=== PATIENT | female | born 1985 | race Caucasian/White ===

== ENCOUNTER → 2018-02-26 | Outpatient (CLI) | payer OTHER ==
[~2018-02-26] MED LIST: APAP/CODEINE ELI5 M1 PO; AUGMENTIN 875875 M1 PO; BIRTH CONTROLL IMPLA; CARAFATE 1 GM TA1 GM PO; CATAPRES PO; COZAAR 25 MG TA25 M1; COZAAR 50 MG TA50 M2 PO; CYCLOBENZAPRINE10 MG PO; IBUPROFEN 600600 M1 PO; LISINOPRIL5 MG PO; LOESTRIN1 EAC1; NAPROXEN500 MG PO; NORCO 5-325 TA1 EACH PO; ONDANSETRON ODT4 MG PO; PROTONIX40 M1 PO; VALIUM2 MG PO; VENTOLIN HFA 1818 GM INH; ZPAK PO
== END ==
LOC: M.INFUS 07:58
DX: L03.116 Cellulitis of left lower limb (principal); I10 Essential (primary) hypertension; E66.9 Obesity, unspecified

== ENCOUNTER → 2018-02-27 | Outpatient (CLI) | payer OTHER, SELFPAY ==
--- NOTE | 2018-02-27 08:00 | NUR ---
ARRIVED PER WHEELCHAIR. PT ASSISTED INTO RECLINER. MADE SELF COMFORTABLE IN RECLINER. LEFT LOWER EXTREMITY ELEVATED ON PILLOW FOR COMFORT. OUTPATIENT ADMISSION/HX OBTAINED. PICC LINE INTACT AND PATENT. LABS (CBC W/DIFF, CMP, AND CRP) DRAWN. PT'S PICC LINE WAS PLACED ON 02/22/18 AND DRESSING IS DUE TO BE CHANGED ON 03/01/18. INVANZ 1 GRAM INFUSION COMPLETED AND TOLERATED WELL. PT GIVEN DISCHARGE INSTRUCTIONS AND VERBALIZED UNDERSTANDING. PT TAKEN BY W/CHAIR FOR D/CHARGE HOME VIA FAMILY CAR. PT ACCOMPANIED BY PT'S FATHER.
[2018-02-27 08:04] VITALS: BP 138/79
[2018-02-27 09:42] LABS: ABSOLUTE BASOPHILS 0.1 thou/uL (0.0-0.2); ABSOLUTE EOSINOPHILS 0.2 thou/uL (0.0-0.7); ABSOLUTE LYMPHOCYTES 2.4 thou/uL (0.8-5.3); ABSOLUTE MONOCYTES 0.7 thou/uL (0.0-1.2); ABSOLUTE NEUTROPHILS 6.9 thou/uL (1.6-8.1); BASOPHILS 1.3 %; EOSINOPHILS 1.7 %; HEMATOCRIT 35.1 % (37.0-47.0); HEMOGLOBIN 11.7 gm/dL (12.0-15.0); LYMPHOCYTES 23.2 %; MCHC 33.3 g/dL (28.0-37.0); MCV 84.3 fL (80.0-100.0); MPV 7.3 fl. (7.2-11.1); NUCLEATED RBCS 0 /100WBC; PLATELET COUNT* 408 thou/uL (150-400); POLYS 66.8 %; RBC 4.16 mil/uL (4.20-5.00); RDW-CV 13.6 % (10.5-14.5); WBC 10.3 thou/uL (4.0-11.0)
[2018-02-27 10:01] LABS: ALBUMIN 2.9 g/dL (3.4-5.0); CALCIUM 8.9 mg/dL (8.5-10.1); TOTAL BILIRUBIN 0.3 mg/dL (<0.1-1.0); TOTAL PROTEIN 7.1 g/dL (6.4-8.2)
== END ==
LOC: M.INFUS 07:39
PROVIDERS: Internal Medicine Infectious Disease
DX: L03.116 Cellulitis of left lower limb (principal); I10 Essential (primary) hypertension; E66.9 Obesity, unspecified

== ENCOUNTER → 2018-02-28 | Outpatient (CLI) | payer OTHER, SELFPAY ==
--- NOTE | 2018-02-28 09:22 | NUR ---
ARRIVED AMBULATORY W/AID OF KNEE WALKER. MADE SELF COMFORTABLE IN RECLINER. DUAL LUMEN PICC LINE INTACT W/DRESSING C/D/I AND PATENT W/EASY FLUSH AND GOOD BLOOD RETURN. INFUSION COMPLETED AND TOLERATED WELL. DUAL LUMEN PICC FLUSHED W/20 CC NS. PT DENIES NEEDS/QUESTIONS AT DISCHARGE.
[2018-02-28 09:25] VITALS: BP 130/87
== END ==
LOC: M.INFUS 01:40
DX: L03.116 Cellulitis of left lower limb (principal); I10 Essential (primary) hypertension; E66.9 Obesity, unspecified

== ENCOUNTER → 2018-03-01 | Outpatient (CLI) | payer OTHER ==
[2018-03-01 14:40] VITALS: BP 124/71
--- NOTE | 2018-03-01 16:05 | NUR ---
ARRIVED PER [facility] SCOOTER. MADE SELF COMFORTABLE IN RECLINER. WEEKLY PICC DRESSING CHANGED. TOLERATED WELL. INFUSION COMPLETED AND TOELRATED WELL. PT VOICED CONCERN THAT MED WAS TO RUN OVER 30 MIN. STATED IT HAD CAUSED IV TO GO BAD IN HOSPITAL. PT EDUCATION ON PICC AND CENTRAL LINE VS PIV. STATED STILL DID NOT WANT IT TO RUN IN LESS THAN 1 HOUR. INFUSION COMPLETED AND TOLERATED WELL.
== END ==
LOC: M.INFUS 02:09
DX: L03.116 Cellulitis of left lower limb (principal); I10 Essential (primary) hypertension; E66.9 Obesity, unspecified; Z68.42 Body mass index [BMI] 45.0-49.9, adult

== ENCOUNTER → 2018-03-02 | Outpatient (CLI) | payer OTHER ==
[2018-03-02 13:48] VITALS: BP 144/80
== END ==
LOC: M.INFUS 01:49
DX: L03.116 Cellulitis of left lower limb (principal); I10 Essential (primary) hypertension; E66.9 Obesity, unspecified; Z68.42 Body mass index [BMI] 45.0-49.9, adult

== ENCOUNTER → 2018-03-03 | Outpatient (CLI) | payer OTHER, SELFPAY ==
[2018-03-03 14:20] VITALS: BP 127/72
== END ==
LOC: M.INFUS 01:36
DX: L03.116 Cellulitis of left lower limb (principal); I10 Essential (primary) hypertension; E66.9 Obesity, unspecified; Z68.42 Body mass index [BMI] 45.0-49.9, adult

== ENCOUNTER → 2018-03-04 | Outpatient (CLI) | payer OTHER | LOC: M.INFUS 08:00 | DX: L03.116 Cellulitis of left lower limb (principal) ==

== ENCOUNTER → 2018-03-05 | Outpatient (CLI) | payer OTHER, SELFPAY | LOC: M.INFUS 08:00 | DX: M00.9 Pyogenic arthritis, unspecified (principal) ==

== ENCOUNTER → 2018-03-06 | Outpatient (CLI) | payer OTHER, SELFPAY ==
[2018-03-06 12:20] VITALS: BP 144/88
[2018-03-06 14:36] LABS: ABSOLUTE BASOPHILS 0.1 thou/uL (0.0-0.2); ABSOLUTE EOSINOPHILS 0.1 thou/uL (0.0-0.7); ABSOLUTE LYMPHOCYTES 3.1 thou/uL (0.8-5.3); ABSOLUTE MONOCYTES 0.6 thou/uL (0.0-1.2); ABSOLUTE NEUTROPHILS 4.8 thou/uL (1.6-8.1); BASOPHILS 0.6 %; EOSINOPHILS 1.6 %; HEMOGLOBIN 11.7 gm/dL (12.0-15.0); LYMPHOCYTES 35.6 %; MCH 27.9 pg (26.0-34.0); MCHC 33.4 g/dL (28.0-37.0); MCV 83.7 fL (80.0-100.0); MONOCYTES 6.6 %; MPV 7.5 fl. (7.2-11.1); NUCLEATED RBCS 0 /100WBC; PLATELET COUNT* 364 thou/uL (150-400); POLYS 55.6 %; RBC 4.18 mil/uL (4.20-5.00); RDW-CV 13.5 % (10.5-14.5); WBC 8.6 thou/uL (4.0-11.0)
--- NOTE | 2018-03-06 14:38 | NUR ---
ARRIVED AMBUALTORY WITH KNEE SCOOTER. MADE SELF COMFORTABLE. SON AT CHAIRSIDE. PICC LINE INTACT WITH DRESSING C/D/I. WEEKLY LABS DRAWN PER STANDING ORDER. INFUSION COMPLETED AND TOLERATED WELL. PICC FLUSHED. DENIES NEEDS AT DISCHARGE.
[2018-03-06 15:14] LABS: CALCIUM 9.1 mg/dL (8.5-10.1); POTASSIUM 4.2 mmol/L (3.5-5.1); TOTAL BILIRUBIN 0.2 mg/dL (<0.1-1.0); TOTAL PROTEIN 6.9 g/dL (6.4-8.2)
[2018-03-06 15:15] LABS: ALBUMIN 3.2 g/dL (3.4-5.0)
== END ==
LOC: M.INFUS 00:07
PROVIDERS: Internal Medicine Infectious Disease
DX: M00.9 Pyogenic arthritis, unspecified (principal)

== ENCOUNTER → 2018-03-07 | Outpatient (CLI) | payer OTHER | LOC: M.WC 12:28 | DX: T81.89XA Other complications of procedures, not elsewhere classified, initial encounter (principal); I10 Essential (primary) hypertension; E66.9 Obesity, unspecified; Z68.42 Body mass index [BMI] 45.0-49.9, adult; Y83.8 Other surgical procedures as the cause of abnormal reaction of the patient, or of later complication, without mention of misadventure at the time of the procedure ==

== ENCOUNTER → 2018-03-07 | Outpatient (CLI) | payer OTHER, SELFPAY | LOC: M.INFUS 03:26 | DX: M00.9 Pyogenic arthritis, unspecified (principal) ==

== ENCOUNTER → 2018-03-08 | Outpatient (CLI) | payer OTHER, SELFPAY ==
[2018-03-08 14:15] VITALS: BP 132/78
== END ==
LOC: M.INFUS 05:54
DX: M00.9 Pyogenic arthritis, unspecified (principal)

== ENCOUNTER → 2018-03-09 | Outpatient (CLI) | payer OTHER, SELFPAY ==
[2018-03-09 14:10] VITALS: BP 138/78
== END ==
LOC: M.INFUS 02:24
DX: L03.116 Cellulitis of left lower limb (principal); I10 Essential (primary) hypertension; E66.9 Obesity, unspecified; Z68.42 Body mass index [BMI] 45.0-49.9, adult

== ENCOUNTER → 2018-03-10 | Outpatient (CLI) | payer OTHER ==
[2018-03-04 15:00] VITALS: BP 135/82
--- NOTE | 2018-03-04 16:01 | NUR ---
RECEIVED PT FROM ER FOR OUTPATIENT INFUSION OF INVANZ OVER 1 HOUR. PT ARRIVED AT 1445 AND INFUSION BEGAN AT 1500 AND ENDED AT 1600. POST VITALS ARE BP OF 130/80, HR OF 80, TEMP OF 98.3.
== END ==
LOC: M.INFUS 01:34
DX: L03.116 Cellulitis of left lower limb (principal); I10 Essential (primary) hypertension; E66.9 Obesity, unspecified; Z68.42 Body mass index [BMI] 45.0-49.9, adult; Z86.718 Personal history of other venous thrombosis and embolism

== ENCOUNTER → 2018-03-11 | Outpatient (CLI) | payer OTHER, SELFPAY ==
[2018-03-11 17:30] VITALS: BP 133/81
--- NOTE | 2018-03-11 18:21 | NUR ---
PT ARRIVED ON THE FLOOR AT 1730. VSS WNL. WAITING ON PHARMACY FOR MEDICATION.
== END ==
LOC: M.INFUS 08:00
DX: M79.662 Pain in left lower leg (principal); L03.116 Cellulitis of left lower limb; I10 Essential (primary) hypertension; E66.9 Obesity, unspecified; Z68.42 Body mass index [BMI] 45.0-49.9, adult

== ENCOUNTER → 2018-03-12 | Outpatient (CLI) | payer OTHER, SELFPAY | LOC: M.INFUS 08:00 | DX: L03.116 Cellulitis of left lower limb (principal); I10 Essential (primary) hypertension; E66.9 Obesity, unspecified; Z68.42 Body mass index [BMI] 45.0-49.9, adult ==

== ENCOUNTER → 2018-03-13 | Outpatient (CLI) | payer OTHER, SELFPAY ==
--- NOTE | 2018-03-13 14:12 | NUR ---
PATIENT ARRIVAL VIA [facility] AMBULATORY SCOOTER FROM HOME TO OP INFUSION AREA WITH FAMILY PRESENT. HISTORY AND ORDERS REVIEWED. REASSESSMENT AND VS OBTAINED. RT UPPER ARM DUAL LUMEN PICC WITH DRESSING C/D/I AND WITHOUT REDNESS OR DRAINAGE. PICC LUMENS WITH BRISK BLOOD RETURN AND FLUSH WELL. WEEKLY LABS DRAWN. INVANZ THERAPY STARTED ONCE AVAILABLE FROM PHARMACY.
[2018-03-13 14:15] VITALS: BP 130/77
[2018-03-13 15:00] LABS: ABSOLUTE BASOPHILS 0.1 thou/uL (0.0-0.2); ABSOLUTE EOSINOPHILS 0.2 thou/uL (0.0-0.7); ABSOLUTE LYMPHOCYTES 2.4 thou/uL (0.8-5.3); ABSOLUTE MONOCYTES 0.5 thou/uL (0.0-1.2); ABSOLUTE NEUTROPHILS 4.5 thou/uL (1.6-8.1); EOSINOPHILS 2.5 %; HEMOGLOBIN 11.6 gm/dL (12.0-15.0); LYMPHOCYTES 31.1 %; MCH 27.9 pg (26.0-34.0); MCHC 33.3 g/dL (28.0-37.0); MCV 83.9 fL (80.0-100.0); MONOCYTES 6.5 %; NUCLEATED RBCS 0 /100WBC; PLATELET COUNT* 295 thou/uL (150-400); POLYS 58.9 %; RBC 4.17 mil/uL (4.20-5.00); RDW-CV 13.6 % (10.5-14.5); WBC 7.7 thou/uL (4.0-11.0)
[2018-03-13 15:08] LABS: ALBUMIN 3.1 g/dL (3.4-5.0); CALCIUM 9.5 mg/dL (8.5-10.1); CREATININE 0.9 mg/dL (0.6-1.3); POTASSIUM 3.5 mmol/L (3.5-5.1); TOTAL BILIRUBIN 0.3 mg/dL (<0.1-1.0); TOTAL PROTEIN 7.3 g/dL (6.4-8.2)
--- NOTE | 2018-03-13 15:50 | NUR ---
ANTIBIOTIC THERAPY COMPLETED. PICC LINE FLUSHED WITH NS. PATIENT DENIES CONCERNS. DEPARTS FOR HOME VIA ROLLING SCOOTER WITH FAMILY PRESENT AT 1552.
== END ==
LOC: M.INFUS 05:44
PROVIDERS: Internal Medicine Infectious Disease
DX: L03.116 Cellulitis of left lower limb (principal); I10 Essential (primary) hypertension; E66.9 Obesity, unspecified; Z68.42 Body mass index [BMI] 45.0-49.9, adult

== ENCOUNTER → 2018-03-14 | Outpatient (CLI) | payer OTHER, SELFPAY ==
[2018-03-14 14:40] VITALS: BP 132/78
== END ==
LOC: M.INFUS 04:02 → M.WC 04:02 → M.INFUS 14:30
DX: T81.89XD Other complications of procedures, not elsewhere classified, subsequent encounter (principal); I10 Essential (primary) hypertension; E66.9 Obesity, unspecified; Z68.42 Body mass index [BMI] 45.0-49.9, adult; Y83.8 Other surgical procedures as the cause of abnormal reaction of the patient, or of later complication, without mention of misadventure at the time of the procedure

== ENCOUNTER → 2018-03-15 | Outpatient (CLI) | payer OTHER, SELFPAY ==
[2018-03-15 14:00] VITALS: BP 136/76
--- NOTE | 2018-03-15 15:09 | NUR ---
INFUSION COMPLETED AND TOLERATED WELL. DENIES QUESTIONS OR NEEEDS AT DISHCARGE.
== END ==
LOC: M.INFUS 01:33
DX: L03.116 Cellulitis of left lower limb (principal); I10 Essential (primary) hypertension; E66.9 Obesity, unspecified

== ENCOUNTER → 2018-03-16 | Outpatient (CLI) | payer OTHER, SELFPAY ==
[2018-03-16 14:26] VITALS: BP 134/79
== END ==
LOC: M.INFUS 01:27
DX: L03.116 Cellulitis of left lower limb (principal); I10 Essential (primary) hypertension; E66.9 Obesity, unspecified

== ENCOUNTER → 2018-03-17 | Outpatient (CLI) | payer OTHER, SELFPAY ==
--- NOTE | 2018-03-17 14:09 | NUR ---
ARRIVED AMBULATORY W/ASSISTANCE OF KNEE SCOOTER. MADE SELF COMFORTABLE IN RECLINER. LEFT FOOT ELEVATED ON PILLOW FOR COMFORT. DUAL LUMEN PICC LINE TO RIGHT UPPER ARM INTACT W/DRESSING C/D/I AND PATENT W/EASY FLUSH AND GOOD BLOOD RETURN. PT DENIES ADVERSE REACTION TO PRIOR INFUSIONS OF SAME. INFUSION COMPLETED AND TOLERATED WELL. DUAL LUMEN PICC FLUSHED W/20CC NS AFTER INFUSION COMPLETED. PT DENIES QUESTIONS/NEEDS AT DISCHARGE.
[2018-03-17 14:10] VITALS: BP 131/80
== END ==
LOC: M.INFUS 01:17
DX: L03.116 Cellulitis of left lower limb (principal); I10 Essential (primary) hypertension; E66.9 Obesity, unspecified

== ENCOUNTER → 2018-03-18 | Outpatient (CLI) | payer OTHER, SELFPAY | LOC: M.INFUS 08:00 | DX: L03.116 Cellulitis of left lower limb (principal); I10 Essential (primary) hypertension; E66.9 Obesity, unspecified ==

== ENCOUNTER → 2018-03-19 | Outpatient (CLI) | payer OTHER ==
[2018-03-19 14:45] VITALS: BP 124/80
[2018-03-19 16:07] VITALS: BP 131/81
== END ==
LOC: M.INFUS 08:00
DX: L03.116 Cellulitis of left lower limb (principal); I10 Essential (primary) hypertension; E66.9 Obesity, unspecified

== ENCOUNTER → 2018-03-20 | Outpatient (CLI) | payer OTHER ==
--- NOTE | 2018-03-20 14:13 | NUR ---
PATIENT ARRIVAL AMBULATORY FROM HOME TO OP INFUSION AREA. FATHER PRESENT WITH PATIENT. PATIENT USING KNEE SCOOTER TO AMBULATE INDEPENDENTLY. MADE SELF COMFORTABLE IN RECLINER. CALL LIGHT AND REMOTE AVAILABLE. HISTORY AND ORDERS REVIEWED. REASSESSMENT AND VS OBTAINED. RT UPPER ARM DUAL LUMEN PICC WITH DRESSING C/D/I. BRISK BLOOD RETURN OBTAINED BOTH LUMENS AND FLUSHES WELL. WEEKLY LABS DRAWN. ANTIBIOTIC THERAPY STARTED ONCE AVAILABLE FROM PHARMACY.
[2018-03-20 14:16] VITALS: BP 132/79
[2018-03-20 14:51] LABS: ABSOLUTE BASOPHILS 0.1 thou/uL (0.0-0.2); ABSOLUTE EOSINOPHILS 0.2 thou/uL (0.0-0.7); ABSOLUTE LYMPHOCYTES 2.6 thou/uL (0.8-5.3); ABSOLUTE MONOCYTES 0.5 thou/uL (0.0-1.2); ABSOLUTE NEUTROPHILS 4.6 thou/uL (1.6-8.1); BASOPHILS 0.8 %; HEMATOCRIT 36.1 % (37.0-47.0); HEMOGLOBIN 11.8 gm/dL (12.0-15.0); LYMPHOCYTES 32.7 %; MCH 27.6 pg (26.0-34.0); MCHC 32.8 g/dL (28.0-37.0); MCV 84.1 fL (80.0-100.0); MONOCYTES 6.7 %; MPV 7.9 fl. (7.2-11.1); NUCLEATED RBCS 0 /100WBC; PLATELET COUNT* 322 thou/uL (150-400); POLYS 57.8 %; RBC 4.29 mil/uL (4.20-5.00); RDW-CV 13.8 % (10.5-14.5); WBC 7.9 thou/uL (4.0-11.0)
[2018-03-20 15:10] LABS: ALBUMIN 3.2 g/dL (3.4-5.0); CALCIUM 9.4 mg/dL (8.5-10.1); CREATININE 0.9 mg/dL (0.6-1.3); POTASSIUM 3.8 mmol/L (3.5-5.1); TOTAL BILIRUBIN 0.2 mg/dL (<0.1-1.0); TOTAL PROTEIN 6.8 g/dL (6.4-8.2)
--- NOTE | 2018-03-20 15:29 | NUR ---
LAB RESULTS FAXED TO DR. FU'S OFFICE.
--- NOTE | 2018-03-20 15:35 | NUR ---
ANTIBIOTIC THERAPY COMPLETED. PICC LINE FLUSHED. PATIENT DEPARTS FOR HOME WITH FATHER PRESENT BY KNEE SCOOTER. DENIES CONCERNS. PICC LINE DRESSING REMAINS C/D/I.
== END ==
LOC: M.INFUS 01:31
PROVIDERS: Internal Medicine Infectious Disease
DX: L03.116 Cellulitis of left lower limb (principal); I10 Essential (primary) hypertension; E66.9 Obesity, unspecified

== ENCOUNTER → 2018-03-21 | Outpatient (CLI) | payer OTHER | LOC: M.INFUS 02:13 → M.WC 02:13 → M.INFUS 14:30 | DX: L03.116 Cellulitis of left lower limb (principal) ==

== ENCOUNTER → 2018-03-22 | Outpatient (CLI) | payer OTHER ==
--- NOTE | 2018-03-22 15:59 | NUR ---
INFUSION COMPLETED AND TOLERATED WELL.
== END ==
LOC: M.INFUS 03:32
DX: L03.116 Cellulitis of left lower limb (principal)

== ENCOUNTER → 2018-03-24 | Outpatient (CLI) | payer OTHER ==
[2018-03-24 14:12] VITALS: BP 131/75
--- NOTE | 2018-03-24 15:25 | NUR ---
PT TOLERATED HER ANTIBIOTIC INFUSION WELL, WITHOUT ANY COMPLICATIONS.
== END ==
LOC: M.WC 01:53 → M.INFUS 01:53 → M.WC 14:00 → M.INFUS 14:30
DX: L03.116 Cellulitis of left lower limb (principal)

== ENCOUNTER → 2018-03-25 | Outpatient (CLI) | payer OTHER ==
[2018-03-23 14:10] VITALS: BP 149/85
--- NOTE | 2018-03-23 14:20 | NUR ---
ASSUMED CARE OF PATIENT FORM HOME. SHE HAS NO CO OF PAIN OR NAUSEA. SHE WAS ASSESSED AND CONDITION IS SAME. SHE WAS EDUCATED ON PLAN OF CARE AND DISEASE PROCESS, WILL CONTINUE TO MONITOR.
== END ==
LOC: M.INFUS 03-23 04:56
DX: L03.116 Cellulitis of left lower limb (principal)

== ENCOUNTER → 2018-03-27 | Outpatient (CLI) | payer OTHER ==
[2018-03-27 14:05] VITALS: BP 141/72
[2018-03-27 14:28] LABS: ABSOLUTE BASOPHILS 0.1 thou/uL (0.0-0.2); ABSOLUTE EOSINOPHILS 0.2 thou/uL (0.0-0.7); ABSOLUTE LYMPHOCYTES 3.1 thou/uL (0.8-5.3); ABSOLUTE MONOCYTES 0.5 thou/uL (0.0-1.2); ABSOLUTE NEUTROPHILS 4.7 thou/uL (1.6-8.1); BASOPHILS 1.2 %; EOSINOPHILS 1.8 %; HEMATOCRIT 35.4 % (37.0-47.0); HEMOGLOBIN 11.8 gm/dL (12.0-15.0); LYMPHOCYTES 36.1 %; MCHC 33.3 g/dL (28.0-37.0); MCV 84.2 fL (80.0-100.0); MPV 7.5 fl. (7.2-11.1); NUCLEATED RBCS 0 /100WBC; PLATELET COUNT* 335 thou/uL (150-400); POLYS 54.9 %; RBC 4.21 mil/uL (4.20-5.00); RDW-CV 14.1 % (10.5-14.5); WBC 8.6 thou/uL (4.0-11.0)
[2018-03-27 14:42] LABS: ALBUMIN 3.2 g/dL (3.4-5.0); CALCIUM 8.7 mg/dL (8.5-10.1); CREATININE 0.7 mg/dL (0.6-1.3); POTASSIUM 3.8 mmol/L (3.5-5.1); TOTAL BILIRUBIN 0.2 mg/dL (<0.1-1.0); TOTAL PROTEIN 6.7 g/dL (6.4-8.2)
--- NOTE | 2018-03-27 16:08 | NUR ---
DUAL LUMAN PICC INTACT AND PATENT. GOOD BLOOD RETURN AND EASY FLUSH. WEEKLY LABS DRAWN AND RESULTS FAXTED TO ORDERING DOCTOR. INFUSION COMPLETED AND TOELRATED WELL. PICC FLUSHED AFTER. DENEIS NEEDS AT DISCHARGE.
== END ==
LOC: M.INFUS 09:09
PROVIDERS: Internal Medicine Infectious Disease
DX: L03.116 Cellulitis of left lower limb (principal); I10 Essential (primary) hypertension; E66.9 Obesity, unspecified

== ENCOUNTER → 2018-03-28 | Outpatient (CLI) | payer OTHER | LOC: M.WC 03-27 13:30 → M.INFUS 02:14 → M.WC 02:14 | DX: T81.89XD Other complications of procedures, not elsewhere classified, subsequent encounter (principal); I10 Essential (primary) hypertension; E66.9 Obesity, unspecified; Z68.42 Body mass index [BMI] 45.0-49.9, adult; Y83.8 Other surgical procedures as the cause of abnormal reaction of the patient, or of later complication, without mention of misadventure at the time of the procedure ==

== ENCOUNTER → 2018-03-29 | Outpatient (CLI) | payer OTHER | LOC: M.INFUS 01:59 | DX: L03.116 Cellulitis of left lower limb (principal); I10 Essential (primary) hypertension; E66.9 Obesity, unspecified ==

== ENCOUNTER → 2018-03-30 | Outpatient (CLI) | payer OTHER ==
[2018-03-30 15:15] VITALS: BP 132/68
--- NOTE | 2018-03-30 15:30 | NUR ---
PT ARRIVED TO OUPT INFUSION FOR IV ANTIBIOTIC THERAPY. AMBULATING USING OFFLOADING SCOOTER FOR LEFT FOOT. SETTLED SELF INTO RECLINER. RIGHT AC PICC LINE FLUSHED EASILY/BRISK BLOOD RETURN. RECEIVED IV ANTIBIOTIC WITHOUT ANY ADVERESE REACTION. PICC LINE D/C'D PER ORDERS. RIGHT ARM PICC SITE COVERED WITH GAUZE DRESSING, AFTER PRESSURE APPLIED, NO BRUISING/BLEEDING NOTED. DISMISSED HOME IN GOOD CONDITION USING SCOOTER.
== END ==
LOC: M.INFUS 02:31
DX: L03.116 Cellulitis of left lower limb (principal); I10 Essential (primary) hypertension; E66.9 Obesity, unspecified

== ENCOUNTER → 2018-03-31 | Outpatient (CLI) | payer OTHER, SELFPAY | LOC: M.WC 03:51 | DX: T81.89XD Other complications of procedures, not elsewhere classified, subsequent encounter (principal); I10 Essential (primary) hypertension; E66.9 Obesity, unspecified; Z68.42 Body mass index [BMI] 45.0-49.9, adult; Y83.8 Other surgical procedures as the cause of abnormal reaction of the patient, or of later complication, without mention of misadventure at the time of the procedure ==

== ENCOUNTER → 2018-04-04 | Outpatient (CLI) | payer OTHER | LOC: M.WC 00:51 | DX: T81.89XD Other complications of procedures, not elsewhere classified, subsequent encounter (principal); I10 Essential (primary) hypertension; E66.9 Obesity, unspecified; Z68.42 Body mass index [BMI] 45.0-49.9, adult; Y83.8 Other surgical procedures as the cause of abnormal reaction of the patient, or of later complication, without mention of misadventure at the time of the procedure ==

== ENCOUNTER → 2018-04-07 | Outpatient (CLI) | payer OTHER | LOC: M.WC 02:43 | DX: T81.89XD Other complications of procedures, not elsewhere classified, subsequent encounter (principal); I10 Essential (primary) hypertension; E66.9 Obesity, unspecified; Z68.42 Body mass index [BMI] 45.0-49.9, adult; Y83.8 Other surgical procedures as the cause of abnormal reaction of the patient, or of later complication, without mention of misadventure at the time of the procedure ==

== ENCOUNTER → 2018-04-11 | Outpatient (CLI) | payer OTHER | LOC: M.WC 01:56 | DX: T81.89XD Other complications of procedures, not elsewhere classified, subsequent encounter (principal); I10 Essential (primary) hypertension; E66.9 Obesity, unspecified; Z68.42 Body mass index [BMI] 45.0-49.9, adult; Y83.8 Other surgical procedures as the cause of abnormal reaction of the patient, or of later complication, without mention of misadventure at the time of the procedure ==

== ENCOUNTER → 2018-04-14 | Outpatient (CLI) | payer OTHER | LOC: M.WC 02:36 | DX: T81.89XD Other complications of procedures, not elsewhere classified, subsequent encounter (principal); I10 Essential (primary) hypertension; E66.9 Obesity, unspecified; Z68.42 Body mass index [BMI] 45.0-49.9, adult; Y83.8 Other surgical procedures as the cause of abnormal reaction of the patient, or of later complication, without mention of misadventure at the time of the procedure ==

== ENCOUNTER → 2018-04-18 | Outpatient (CLI) | payer OTHER | LOC: M.WC 00:44 | DX: T81.89XD Other complications of procedures, not elsewhere classified, subsequent encounter (principal); I10 Essential (primary) hypertension; E66.9 Obesity, unspecified; Z68.42 Body mass index [BMI] 45.0-49.9, adult; Y83.8 Other surgical procedures as the cause of abnormal reaction of the patient, or of later complication, without mention of misadventure at the time of the procedure ==

== ENCOUNTER → 2018-04-21 | Outpatient (CLI) | payer OTHER | LOC: M.WC 02:29 | DX: T81.89XD Other complications of procedures, not elsewhere classified, subsequent encounter (principal); I10 Essential (primary) hypertension; E66.9 Obesity, unspecified; Z68.42 Body mass index [BMI] 45.0-49.9, adult; Y83.8 Other surgical procedures as the cause of abnormal reaction of the patient, or of later complication, without mention of misadventure at the time of the procedure ==

== ENCOUNTER → 2018-04-25 | Outpatient (CLI) | payer OTHER | LOC: M.WC 08:58 | DX: T81.89XD Other complications of procedures, not elsewhere classified, subsequent encounter (principal); I87.2 Venous insufficiency (chronic) (peripheral); I10 Essential (primary) hypertension; E66.9 Obesity, unspecified; Z68.42 Body mass index [BMI] 45.0-49.9, adult; Y83.8 Other surgical procedures as the cause of abnormal reaction of the patient, or of later complication, without mention of misadventure at the time of the procedure ==

== ENCOUNTER → 2018-05-02 | Outpatient (CLI) | payer OTHER | LOC: M.WC 04:54 | DX: T81.89XD Other complications of procedures, not elsewhere classified, subsequent encounter (principal); I10 Essential (primary) hypertension; E66.9 Obesity, unspecified; Z68.42 Body mass index [BMI] 45.0-49.9, adult; Y83.8 Other surgical procedures as the cause of abnormal reaction of the patient, or of later complication, without mention of misadventure at the time of the procedure ==

== ENCOUNTER → 2018-05-09 | Outpatient (CLI) | payer OTHER | LOC: M.WC 05-08 13:30 | DX: T81.89XD Other complications of procedures, not elsewhere classified, subsequent encounter (principal); I87.2 Venous insufficiency (chronic) (peripheral); I10 Essential (primary) hypertension; E66.9 Obesity, unspecified; Z68.42 Body mass index [BMI] 45.0-49.9, adult; Y83.8 Other surgical procedures as the cause of abnormal reaction of the patient, or of later complication, without mention of misadventure at the time of the procedure ==

== ENCOUNTER → 2018-05-16 | Outpatient (CLI) | payer OTHER | LOC: M.WC 03:27 | DX: T81.89XD Other complications of procedures, not elsewhere classified, subsequent encounter (principal); I10 Essential (primary) hypertension; I87.2 Venous insufficiency (chronic) (peripheral); E66.9 Obesity, unspecified; Z68.42 Body mass index [BMI] 45.0-49.9, adult; Y83.8 Other surgical procedures as the cause of abnormal reaction of the patient, or of later complication, without mention of misadventure at the time of the procedure ==

== ENCOUNTER → 2018-05-23 | Outpatient (CLI) | payer OTHER | LOC: M.WC 03:27 | DX: T81.89XD Other complications of procedures, not elsewhere classified, subsequent encounter (principal); I87.2 Venous insufficiency (chronic) (peripheral); E66.9 Obesity, unspecified; Z68.42 Body mass index [BMI] 45.0-49.9, adult; Y83.8 Other surgical procedures as the cause of abnormal reaction of the patient, or of later complication, without mention of misadventure at the time of the procedure ==

== ENCOUNTER → 2018-05-30 | Outpatient (CLI) | payer OTHER | LOC: M.WC 04:39 | DX: T81.89XD Other complications of procedures, not elsewhere classified, subsequent encounter (principal); I10 Essential (primary) hypertension; I87.2 Venous insufficiency (chronic) (peripheral); E66.9 Obesity, unspecified; Z68.42 Body mass index [BMI] 45.0-49.9, adult; Y83.8 Other surgical procedures as the cause of abnormal reaction of the patient, or of later complication, without mention of misadventure at the time of the procedure ==

== ENCOUNTER → 2018-06-06 | Outpatient (CLI) | payer OTHER | LOC: M.WC 05:12 | DX: T81.89XD Other complications of procedures, not elsewhere classified, subsequent encounter (principal); I87.2 Venous insufficiency (chronic) (peripheral); I10 Essential (primary) hypertension; E66.9 Obesity, unspecified; Z68.42 Body mass index [BMI] 45.0-49.9, adult; Y83.8 Other surgical procedures as the cause of abnormal reaction of the patient, or of later complication, without mention of misadventure at the time of the procedure ==